=== PATIENT | male | born 1935 | race Caucasian/White ===

== ENCOUNTER 2021-11-09 14:39 | Emergency (ER) | payer MEDICARE, SELFPAY ==
[2021-11-09 14:58] VITALS: BP 169/82; PULSE 60; RESP 20; TEMP 36.6; O2SAT 98; BMI 22.0
--- NOTE | 2021-11-09 15:02 | DI.US.S_ITS ---
PROCEDURE: US PERIPH VENOUS LOW EXTREM RT INDICATIONS: RT LEG PAIN TECHNIQUE: Real-time imaging, as well as color and pulse Doppler interrogation, were performed of the lower extremity deep veins from the inguinal ligament to the popliteal fossa. COMPARISON: None. FINDINGS: The common femoral, femoral and popliteal veins are normally compressible, and free of intraluminal thrombus. Color and pulse Doppler demonstrate normal phasic intraluminal flow. There is normal augmentation response to distal compression maneuver. 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 IMPRESSION: No evidence of DVT. Dictated by: Blane Herbert M.D. on 11/09/2021 at 15:45 Approved by: Blane Herbert M.D. on 11/09/2021 at 15:45
--- NOTE | 2021-11-09 16:15 | ED_ITS ---
HPI - Extremity Problem General Chief complaint: Extremity Problem,Nontraumatic Stated complaint: R/O DVT Right Upper Calf Time Seen by Provider: 11/09/21 16:14 Source: patient Mode of arrival: Ambulatory History of Present Illness HPI Narrative: 86M nonsmoker with history of many years and stage 3 chronic kidney disease as well as hypertension presents with family in the chief complaint of pain behind his right knee in the absence of any injury. He states that he had been in his normal state of health then last night started having pain behind his knee in was finding it very difficult to become comfortable. His pain was worse with any motion and seemed to improve with rest. He admittedly feels significantly better today than he did yesterday and states that he took some Ativan that he would normally take for his many years it seemed to help as did a warm compress. He denies any redness or warmth. He has had no chest pain or shortness of breath nor any cough with hemoptysis. He denies recent travel or history of cancer. He recently received his 2nd booster for the COVID vaccine and is concerned that he may have developed a clot in the aftermath Related Data Home Medications Medication Instructions Recorded Confirmed atorvastatin 10 mg tablet (Lipitor) 10 mg PO HS #1 10/01/11 acetaminophen 500 mg tablet 1,000 mg PO PRN #0 12/12/12 (Tylenol Extra Strength) Previous Rx's Medication Instructions Recorded triamterene 37.5 1 cap PO QDAY #90 cap 02/24/16 mg-hydrochlorothiazide 25 mg capsule (Dyazide) lorazepam 0.5 mg tablet (Ativan) 0.5 mg PO TID PRN #14 tab 11/09/21 Allergies Allergy/AdvReac Type Severity Reaction Status Date / Time bee pollen Allergy Severe UVULA Verified 11/09/21 14:58 SWELLING Penicillins Allergy Mild RASH Verified 11/09/21 14:58 Review of Systems Review of Systems Narrative: GENERAL: Denies chills, fatigue, malaise, fever, sweats. HEENT: Denies sinus pain, ear pain, sore throat, difficulty swallowing, dizziness. RESPIRATORY: Denies dyspnea, cough, wheezing, hemoptysis, sputum. CARDIOVASCULAR: Denies chest pain, palpitations, orthopnea, edema, GASTROINTESTINAL: Denies nausea, vomiting, abdominal pain, diarrhea, constipatio n, melena. : Denies dysuria, frequency, incontinence, hematuria, urinary retention. MUSCULOSKELETAL: See HPI SKIN: Denies rash, skin lesions, or other NEUROLOGIC: Denies weakness, headache, numbness, change in speech, confusion, seizures, incoordination. PSYCHIATRIC: No concerning psychosocial issues. 12 point review of systems is negative except for those stated above Patient History Surgical History History of lithotripsy Family History Father Heart disease Social History Smoking Status: Never smoker Smoking Status: Never smoker Substance Use Type: does not use Exam Narrative Exam Narrative: GEN: AOx3 and in mild distress EYES: Pupils are equal, round, and reactive to light and accommodation. Extraoccular muscles are intact bilaterally. There is no subconjunctival hemorrhage or exudate. CHEST: Lungs are clear to auscultation bilaterally and free of wheezes, rales, or rhonchi. Heart rate is regular rhythm, there are no murmurs, clicks, rubs, or gallops. There is no chest wall tenderness. ABD: Abdomen is soft and nontender. There is no guarding or rebound. Bowel s ounds are normal in all 4 quadrants. There is no mass or organomegaly. EXT: Full but painful range of motion at right knee with minimal swelling palpable behind the knee. No calf swelling, tenderness, redness or warmth, no redness, warmth, swelling or pain on palpation of medial thigh SKIN: Warm, pink, and dry. No erythema or rash Initial Vital Signs Initial Vital Signs: Vital Signs Temperature 97.8 F 11/09/21 14:58 Pulse Rate 60 11/09/21 14:58 Respiratory Rate 20 11/09/21 14:58 Blood Pressure 169/82 H 11/09/21 14:58 Pulse Oximetry 98 11/09/21 14:58 Course Orders Ordered: ED Orders 11/09/21 15:02 perip venous low extrem rt Stat Vital Signs Vital signs: Vital Signs - 8 hr 11/09/21 14:58 Temperature 97.8 F Pulse Rate 60 Respiratory Rate 20 Blood Pressure 169/82 H Pulse Oximetry 98 MDM - Extremity (Nontraumatic) Imaging Data US - DVT: Radiologist's Impression: Close Vascular Ultrasound (Signed) Blane Herbert - 11/09/21 Launch?Image [address] [address] Ultrasound Report Signed Patient: Naseem Potts MR#: [id number] : 1935 Acct:[id number] Age/Sex: 86 / M Date of Service: 11/09/21 Loc: ED Accession Number: [id number] ?? Procedure: US periph venous low extrem rt Ordering Provider: Som Whipple D.O. PROCEDURE:? US PERIPH VENOUS LOW EXTREM RT ? INDICATIONS:? RT LEG PAIN ? TECHNIQUE:? Real-time imaging, as well as color and pulse Doppler interrogation, were performed of the lower extremity deep veins from the inguinal ligament to the popliteal fossa.? ? COMPARISON:? None. ? FINDINGS:? The common femoral, femoral and popliteal veins are normally compressible, and free of intraluminal thrombus.? Color and pulse Doppler demonstrate normal phasic intraluminal flow.? There is normal augmentation response to distal compression maneuver. ? ? 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 ? IMPRESSION:? No evidence of DVT. ? ? Dictated by: Blane Herbert M.D. on 11/09/2021 at 15:45 ? ? Approved by: Blane Herbert M.D. on 11/09/2021 at 15:45 ? 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 [x ] New medication prescriptions sent to your pharmacy: [[facility]] [ ] New medication written as a paper prescription [ ] No new medications given *Please follow up with your primary care provider in 2-3 days, call for an appointment. Let them know you were seen in the Emergency Department and that we ask that you be seen in follow up. We will electronically transmit a record of today's note if your PCP is in our system *If you do not have a primary care provider please contact the [facility] Resource line at [phone]. They will ask some questions about your medical history and help get you set up with a doctor in the community. * please consider the use of compression stockings as we discussed *Return to Emergency Department if you should have any new, worsening or concerning symptoms, such as [fever greater than 101 F, shaking chills, worsening pain, increased swelling, redness, or bothersome symptoms Prescriptions: New lorazepam [Ativan] 0.5 mg tablet 0.5 mg PO TID PRN (Reason: agitation) Qty: 14 0RF No Action atorvastatin [Lipitor] 10 MG tablet 10 mg PO HS Qty: 1 0RF acetaminophen [Tylenol Extra Strength] 500 MG tablet 1,000 mg PO PRN Qty: 0 0RF triamterene-hydrochlorothiazid [Dyazide] 37.5 MG/25 MG capsule 1 cap PO QDAY Qty: 90 1RF Referrals: Dottie Contreras ARNP [Primary Care Provider] -
== END 2021-11-09 16:37 | disposition home or self-care (01) ==
PROVIDERS: Emergency Provider Emergency Medicine; Family Provider Family Medicine; PCP Nurse Practitioner Family
DX: M71.21 Synovial cyst of popliteal space [Baker], right knee (principal)
CPT/HCPCS: 93971; 99283

== ENCOUNTER → 2023-01-14 12:43 | Outpatient (CLI) | payer MEDICARE, SELFPAY ==
--- NOTE | 2023-01-14 12:47 | DI.RAD.S_ITS ---
PROCEDURE: XR DEXA AXIAL SKELETON INDICATIONS: Encounter for screening for osteoporosis COMPARISON: None. FINDINGS: This blank DEXA report has been sent in error by the PACS system. The correct and complete report will be forthcoming in 1-2 days. Thank you for your patience and understanding. Dictated by: Yamil Talbot M.D. on 01/14/2023 at 15:16 Approved by: Yamil Talbot M.D. on 01/14/2023 at 15:16
--- NOTE | 2023-01-14 12:58 | DI.DEXA.S_ITS ---
Bone Density Report Name: VIC CHRISTINE Age: 87 Sex: Male Ethnicity: White Date of : 1935 Indication: screening for osteoporosis; Referring Provider: GERHARD PETER Study: Bone densitometry was performed. Exam Date: January 14, 2023 Accession number: [id number] Bone Density: Region BMD T-score Z-score Classification AP Spine(L2, L3) 1.399 3.1 4.1 Normal Femoral Neck (Left) 0.898 0.4 1.5 Normal Total Hip (Left) 1.072 1.1 1.5 Normal Femoral Neck (Right) 0.879 0.3 1.3 Normal Total Hip (Right) 0.977 0.3 0.9 Normal Total Hip Mean 1.024 0.7 1.2 Normal World Health Organization criteria for BMD impression classify patients as: Normal (T-score at or above -1.0), Osteopenia (T-score between -1.0 and -2.5), or Osteoporosis (T-score at or below -2.5). 10-year Fracture Risk: FRAX not reported because: All T-scores for Spine Total, Hip Total, Femoral Neck at or above -1.0 Impression: The patient has normal bone mass. Discussion: BONE DENSITY IS ABOVE THE MINIMUM DESIRABLE LEVEL AT ALL SKELETAL SITES TESTED. This patient?s bone mineral density is above the minimum desirable level (T-score -1.0 or better) at all sites measured. The patient should follow a healthful lifestyle (good nutrition with adequate calcium and vitamin D, and appropriate weight-bearing exercise). Follow-Up: Consider repeating this study in 5 years or sooner if there is some new clinical indication. Reported by: DEEPA DOWNS M.D. on 01/14/2023 1:33:00 PM.
== END ==
PROVIDERS: Family Provider Family Medicine; PCP Family Medicine; Referring Provider Family Medicine; Visit Provider Family Medicine
DX: M85.88 Other specified disorders of bone density and structure, other site (principal); Z13.820 Encounter for screening for osteoporosis; G60.3 Idiopathic progressive neuropathy
CPT/HCPCS: 77080

== ENCOUNTER 2023-10-26 18:12 | Emergency (ER) | payer MEDICARE, SELFPAY ==
[2023-10-26 18:17] VITALS: BP 183/84; PULSE 65; RESP 16; TEMP 36.4; O2SAT 98; BMI 21.2
--- NOTE | 2023-10-26 19:22 | ED.WOUNDLAC ---
HPI - Wound/Laceration General Chief Complaint: Wound/Laceration Stated Complaint: scar swollen and red, open heart x5 wks Time Seen by Provider: 10/26/23 19:01 Source: patient Mode of arrival: Ambulatory History of Present Illness HPI narrative: 88-year-old male with history of type a aortic dissection repair at [facility] in [place] on 09/25/2023 presents by private vehicle for area of swelling over his cannulation site at his right groin. Patient states that he noticed the swelling this morning. He has otherwise been healing well and has been very active, walking every day. Denies use of blood thinners, denies trauma to the area. Related Data Home Medications Medication Instructions Recorded Confirmed atorvastatin 10 mg tablet (Lipitor) 10 mg PO HS ##1 10/01/11 acetaminophen 500 mg tablet 1,000 mg PO PRN ##0 12/12/12 (Tylenol Extra Strength) Previous Rx's Medication Instructions Recorded triamterene 37.5 1 cap PO QDAY #90 caps 02/24/16 mg-hydrochlorothiazide 25 mg capsule (Dyazide) lorazepam 0.5 mg tablet (Ativan) 0.5 mg PO TID PRN agitation #14 11/09/21 tabs Allergies Allergy/AdvReac Type Severity Reaction Status Date / Time bee pollen Allergy Severe UVULA Verified 11/09/21 14:58 SWELLING Penicillins Allergy Mild RASH Verified 11/09/21 14:58 Review of Systems Review of Systems Narrative: See HPI Patient History Surgical History History of lithotripsy Family History Father Heart disease Social History Smoking Status: Never smoker Smoking Status: Never smoker Substance Use Type: does not use Exam Initial Vital Signs Initial Vital Signs: Vital Signs Temperature 97.6 F 10/26/23 18:17 Pulse Rate 65 10/26/23 18:17 Respiratory Rate 16 10/26/23 18:17 Blood Pressure 183/84 H 10/26/23 18:17 Pulse Oximetry 98 10/26/23 18:17 Oxygen Delivery Method Room Air 10/26/23 18:17 Const: Awake, alert, no acute distress, nontoxic appearing Cardiac: regular rate, regular rhythm Chest: Sternotomy site clean, dry, appears to be well healing RESP: unlabored, clear bilaterally, no wheezing MSK: cecilia-sized area of swelling inner R groin at site of cannulation, no palpable thrill Skin: Warm, Dry, intact, no rashes, surgical sites healing well Neuro: AO x3, CN II-XII grossly intact, moves all extremities Course Orders Ordered: ED Orders 10/26/23 19:21 CT angio abd aorta runoff Stat 10/26/23 19:52 CBC Auto Diff [Complete Blood Count AUTO DIFF] Stat CMP [Comprehensive Metabolic Panel] Stat PT [Prothrombin Time INR] Stat Vital Signs Vital signs: Vital Signs - 8 hr 10/26/23 22:14 Pulse Rate 68 Respiratory Rate 24 Blood Pressure 156/70 H Pulse Oximetry 100 Oxygen Delivery Method Room Air MDM - Wound/Laceration Differential Diagnosis Differential diagnosis: Likely laceration, abscess and abrasion Lab Data 10/26/23 19:52 10/26/23 19:52 Labs: Lab Results 10/26/23 Range/Units 19:52 WBC 6.5 (4.5-11.0) X10^3/uL RBC 4.16 L (4.5-5.9) X10^6/uL Hgb 11.8 L (13.5-17.5) g/dL Hct 35.6 L (41-53) % MCV 85.6 (80-100) fL MCH 28.3 (26-34) PG MCHC 33.0 (30-36) % RDW 16.1 H (11.6-14.8) % Plt Count 326 (150-400) X10^3/uL Neut % (Auto) 60.2 (50-75) % Lymph % (Auto) 22.4 L (25-40) % Beadle % (Auto) 9.1 (3-14) % Eos % (Auto) 7.5 H (2-4) % Baso % (Auto) 0.8 (0-2) % Neut # (Auto) 3900 (6266-6518) /uL Lymph # (Auto) 1400 (2098-4853) /uL Beadle # (Auto) 600 (0-900) /uL Eos # (Auto) 500 H (0-450) /uL Baso # (Auto) 100 (0-100) /uL PT 13.1 H (9.4-12.5) SECONDS INR 1.1 (0.9-1.3) Sodium 137 (137-145) mmol/L Potassium 3.7 (3.4-5.1) mmol/L Chloride 104 (98-107) mmol/L Carbon Dioxide 29 (22-32) mmol/L BUN 16 (9-20) mg/dL Creatinine 0.77 (0.66-1.25) mg/dL Estimated GFR > 60 (>60) mL/min BUN/Creatinine Ratio 20.8 (6-22) Glucose 103 (80-110) mg/dL Calcium 9.2 (8.4-10.2) mg/dL Total Bilirubin 0.5 (0.2-1.3) mg/dL AST 21 (17-59) IU/L ALT 18 (<50) IU/L Alkaline Phosphatase 92 (38-126) U/L Total Protein 7.4 (6.3-8.2) g/dL Albumin 4.5 (3.5-5.0) g/dL Globulin 2.9 (1.7-4.1) g/dL Albumin/Globulin Ratio 1.6 (1.0-2.8) Imaging Data CT scan - abdomen/pelvis: Radiologist's Impression: PROCEDURE: CT ANGIO ABD AORTA RUNOFF INDICATIONS: R GROIN SWELLING, RECENT ANGIOCATH PLACEMENT AT SITE TECHNIQUE: After the administration of intravenous contrast, 2.5 mm sections acquired from T12 to the feet, with optional delayed image acquisition from the knees to the feet. 3-dimensional maximum intensity projection (MIP) coronal and sagittal reformats, and/or 3-dimensional volume rendering reformatting was then performed. For radiation dose reduction, the following was used: automated exposure control. COMPARISON: None. FINDINGS: Image Quality: Diagnostic. Abdominal aorta: Atherosclerosis. No evidence for aortic dissection or aneurysmal dilatation. Splanchnic vessels: Celiac trunk excluded. Other splenic vessels appear patent. Right lower extremity: No aneurysmal dilatation, dissection, or occlusion. Visualized arterial vessels appear to be patent to the level of the foot with moderate scattered vascular calcifications throughout. There is a hematoma surrounding vascular access site of the distal right common femoral region measuring approximately 4.4 x 3.8 cm in cross-sectional dimension and 5.4 cm in craniocaudal dimension. No evidence for active extravasation. Left lower extremity: No aneurysmal dilatation, dissection, or occlusion. Visualized arterial vessels appear patent the level of the foot with moderate scattered atherosclerotic calcifications throughout.. ABDOMEN: Liver: No solid mass. Biliary ducts: No biliary dilation. Pancreas: No ductal dilation. Spleen: Size is within normal limits. Adrenal Glands: No adrenal nodules. Kidneys and Ureters: No hydronephrosis. No solid mass. No complex renal cystic lesion which requires follow up. Stomach and Bowel: Normal colonic caliber, without significant wall thickening. Scattered colonic diverticula without acute inflammation. Peritoneum: No abnormal intraperitoneal fluid. No free air. Ventral Wall: No hernia. Abdominal Nodes: No retroperitoneal or mesenteric adenopathy by size criteria. Vessels: Aorta and inferior vena cava are normal in size. PELVIS: Pelvic Organs: Prostatomegaly Bladder: Unremarkable. Pelvic Nodes: No enlarged lymph nodes. Miscellaneous: No inguinal hernias are seen. Bones: No aggressive osseous abnormality. No acute vertebral body compression fractures. Multilevel spondylitic changes throughout the imaged spine. No suspicious osseous lesions. IMPRESSION: 1. There is a 4.4 x 3.8 x 5.4 cm hematoma surrounding the vascular access site in the right distal inguinal region. No evidence for active extravasation. 2. Extensive atherosclerosis. No evidence for high-grade stenosis, dissection, or aneurysmal dilatation. 3. No acute abnormalities identified in the lower abdomen and pelvis. Other chronic findings as above. Dictated by: Benjamin Cuenca M.D. on 10/26/2023 at 21:34 Approved by: Benjamin Cuenca M.D. on 10/26/2023 at 21:42 [facility] Narrative Medical decision making narrative: Well-appearing patient with atraumatic swelling at cannulation site noticed today. Feels somewhat firm to the touch without tenderness or warmth, no thrill palpated. Since he was cannulated there [address] angio with runoff ordered to assess for pseudoaneurysm or other acute finding. Laboratory work is reviewed, no recent priors for comparison. WBC count 6.5, hemoglobin 11.8, platelets 326, sodium 137, potassium 3.7, creatinine 0.77. CT angio runoff shows hematoma at right groin site without evidence of extravasation or pseudoaneurysm. Discussed case with Dr. Sebastian of Cardiothoracic surgery at [facility], who recommended conservative management and we will have the office reach out to patient for follow up. Patient and significant other at bedside and informed of all lab and imaging findings as well as Cardiothoracic surgery recommendations. They will follow up with the office as scheduled. Discharge Plan Departure Patient Disposition: Home Clinical Impression: Postoperative hematoma Instructions: DI for Hematoma (Bruise) Activity Restrictions/Additional Instructions: Apply ice as needed to swelling, decrease strenuous activity but continue to perform light exercise. Folow up with your cardiothoracic surgery team Prescriptions: No Action atorvastatin [Lipitor] 10 MG tablet 10 mg PO HS Qty: 1 acetaminophen [Tylenol Extra Strength] 500 MG tablet 1,000 mg PO PRN Qty: 0 triamterene-hydrochlorothiazid [Dyazide] 37.5 MG/25 MG capsule 1 cap PO QDAY Qty: 90 1RF lorazepam [Ativan] 0.5 mg tablet 0.5 mg PO TID PRN (Reason: agitation) Qty: 14 0RF Referrals: Rowan Echeverria MD [Primary Care Provider] - Stand Alone Forms: Patient Portal/API
[2023-10-26 20:05] LABS: Add Manual Diff / Slide Review NO; Basophils Absolute Auto 100 /uL (0-100); Basophils Percent Auto 0.8 % (0-2); Eosinophils Absolute Auto 500 /uL (0-450); Eosinophils Percent Auto 7.5 % (2-4); Hematocrit 35.6 % (41-53); Hemoglobin 11.8 g/dL (13.5-17.5); Lymphocytes Absolute Auto 1400 /uL (1100-4500); Lymphocytes Percent Auto 22.4 % (25-40); Mean Corpuscular Hemoglobin 28.3 PG (26-34); Mean Corpuscular Volume 85.6 fL (80-100); Monocytes Absolute Auto 600 /uL (0-900); Monocytes Percent Auto 9.1 % (3-14); Neutrophils Absolute Auto 3900 /uL (1500-7000); Neutrophils Percent Auto 60.2 % (50-75); Platelet Count 326 X10^3/uL (150-400); Red Blood Cell Count 4.16 X10^6/uL (4.5-5.9); Red Cell Distribution Width 16.1 % (11.6-14.8); White Blood Cell Count 6.5 X10^3/uL (4.5-11.0)
[2023-10-26 20:08] LABS: INR 1.1 (0.9-1.3); Prothrombin Time 13.1 SECONDS (9.4-12.5)
[2023-10-26 20:13] LABS: Alanine Aminotransferase 18 IU/L (<50); Albumin 4.5 g/dL (3.5-5.0); Albumin Globulin Ratio 1.6 (1.0-2.8); Alkaline Phosphatase 92 U/L (38-126); Aspartate Aminotransferase 21 IU/L (17-59); BUN Creatinine Ratio 20.8 (6-22); Bilirubin Total 0.5 mg/dL (0.2-1.3); Blood Urea Nitrogen 16 mg/dL (9-20); Calcium 9.2 mg/dL (8.4-10.2); Carbon Dioxide 29 mmol/L (22-32); Chloride 104 mmol/L (98-107); Estimated Glomerular Filt Rate > 60 mL/min (>60); Globulin 2.9 g/dL (1.7-4.1); Glucose 103 mg/dL (80-110); HEMOLYSIS < 15 (0-50); Potassium 3.7 mmol/L (3.4-5.1); Sodium 137 mmol/L (137-145); Total Protein 7.4 g/dL (6.3-8.2)
[2023-10-26 22:14] VITALS: BP 156/70; PULSE 68; RESP 24; O2SAT 100
== END 2023-10-26 22:17 | disposition home or self-care (01) ==
PROVIDERS: Emergency Provider Emergency Medicine; Family Provider Family Medicine; PCP Family Medicine
DX: I97.638 Postprocedural hematoma of a circulatory system organ or structure following other circulatory system procedure (principal)
CPT/HCPCS: 36415; 75635; 80053; 85025; 85610; 99283; 99284; Q9967

== ENCOUNTER → 2024-06-20 14:22 | Outpatient (CLI) | payer MEDICARE, BC, SELFPAY ==
[2024-06-20 15:09] LABS: BUN Creatinine Ratio 32.3 (6-22); Blood Urea Nitrogen 32 mg/dL (9-20); Calcium 9.1 mg/dL (8.4-10.2); Carbon Dioxide 30 mmol/L (22-32); Chloride 99 mmol/L (98-107); Estimated Glomerular Filt Rate > 60 mL/min (>60); Glucose 86 mg/dL (80-110); HEMOLYSIS < 15 (0-50); Potassium 4.1 mmol/L (3.4-5.1); Sodium 134 mmol/L (137-145)
== END ==
PROVIDERS: Family Provider Family Medicine; PCP Family Medicine; Referring Provider Internal Medicine Cardiovascular Disease; Visit Provider Internal Medicine Cardiovascular Disease
DX: R07.89 Other chest pain (principal); I71.010 Dissection of ascending aorta
CPT/HCPCS: 36415; 80048

== ENCOUNTER → 2024-06-21 | Outpatient (CLI) | payer MEDICARE, BC, SELFPAY ==
--- NOTE | 2024-06-21 12:17 | DI.CT.S_ITS ---
PROCEDURE: CT ANGIO CHEST INDICATIONS: Other chest pain/Dissection of ascending aorta TECHNIQUE: After the administration of intravenous contrast, 2.5 mm thick sections acquired from the lung apices to the posterior lung bases. Maximum intensity projection (MIP) oblique sagittal reformats were then acquired parallel to the aortic arch. For radiation dose reduction, the following was used: automated exposure control. COMPARISON: Outside Facility, CT, CT ANGIO CHEST ABDOMEN PELVIS, 09/25/2023, 3:44. FINDINGS: Image quality: Excellent. Aorta: Aorta and great vessels are normal in size. No mural irregularity or contrast extravasation to suggest aortic injury. Lower Neck: No enlarged lymph nodes. Thyroid: No thyroid nodules which require sonographic follow up, per consensus guidelines. Axillae: No enlarged lymph nodes. Chest Wall: Unremarkable. Bones: Total right shoulder arthroplasty. Sternotomy wires in place. Moderate to severe diffuse decreased bone mineral density. Complete disc height loss at T10-T11, T12-L1 and L1-L2. Lungs and Pleura: No pneumothorax or pleural effusions. No consolidation. Small 4 millimeter peribronchial solid nodules are noted in the right lower lobe and a solid 4 millimeter nodule in the left apex. The largest nodule is a 0.6 centimeter solid right apical nodule (series 6, image 44). Heart: Heart size is normal. No pericardial effusion. Moderate LAD coronary artery calcification. Thoracic Vessels: Pulmonary arteries demonstrate normal size. Likely aortic valve versus ascending aorta repair with two circumferential densities above the aortic valve within the ascending aorta. Aortic ectasia is noted up to 4.2 centimeters in the ascending aorta. Mediastinum and Irma: No enlarged lymph nodes. Esophagus: No wall thickening. No hiatal hernia. Upper Abdomen: Visualized upper abdomen solid organs and bowel loops appear normal. IMPRESSION: No aortic dissection is seen. Some type of ascending aorta or aortic root repair is seen with ectasia of the ascending aorta measuring up to 4.2 centimeters. Dictated by: Rafat Becerra M.D. on 06/21/2024 at 18:47 Approved by: Rafat Becerra M.D. on 06/21/2024 at 19:03
== END ==
LOC: CT 12:17
PROVIDERS: Family Provider Family Medicine; PCP Family Medicine; Referring Provider Internal Medicine Cardiovascular Disease; Visit Provider Internal Medicine Cardiovascular Disease
DX: I71.010 Dissection of ascending aorta (principal); I77.810 Thoracic aortic ectasia; R07.89 Other chest pain; R91.8 Other nonspecific abnormal finding of lung field
CPT/HCPCS: 71275; Q9967